=== PATIENT | female | born 1945 | race Caucasian/White ===

== ENCOUNTER 2017-05-25 07:43 | Inpatient (IN) | payer OTHER, MEDICARE ==
[2017-05-25 08:00] LABS: BASOPHILS # (AUTO) 0.1 X10^3/uL (0.0-0.1); BASOPHILS % (AUTO) 0.8 % (0.2-1.0); EOSINOPHILS # (AUTO) 0.1 x10^3/uL (0.0-0.2); EOSINOPHILS % (AUTO) 0.9 % (0.9-2.9); HEMATOCRIT 35.9 % (36.0-47.0); HEMOGLOBIN 11.8 g/dL (12.0-16.0); LYMPHOCYTES # (AUTO) 0.9 X10^3/uL (1.3-2.9); LYMPHOCYTES % (AUTO) 6.4 % (21.0-51.0); MEAN CORPUSCULAR HEMOGLOBIN 28.7 pg (27.0-34.0); MEAN CORPUSCULAR HGB CONC 32.8 g/dL (33.0-35.0); MEAN CORPUSCULAR VOLUME 87.4 fL (80.0-100.0); MEAN PLATELET VOLUME 9.8 fL (7.4-11.0); MONOCYTES # (AUTO) 0.6 x10^3/uL (0.3-0.8); MONOCYTES % (AUTO) 4.6 % (0.0-13.0); NEUTROPHILS # (AUTO) 11.8 x10^3/uL (2.2-4.8); NEUTROPHILS % (AUTO) 87.3 % (42.0-75.0); PLATELET COUNT 226 X10^3/uL (150.0-450.0); RED BLOOD COUNT 4.11 X10^6/uL (3.5-5.4); RED CELL DISTRIBUTION WIDTH 13.2 % (11.6-16.5); WHITE BLOOD COUNT 13.5 X10^3/uL (3.6-10.0)
--- NOTE | 2017-05-25 08:06 | RAD ---
Examination: AP chest History: Chest pain Findings: Normal heart size with essentially clear lungs and pleural spaces. Diffuse increase in dens ity over the left lower lung is attributed to overlying soft tissues. There is no evidence for pleura l fluid or pneumothorax. Impression: No acute chest disease identified. Reported By:
[2017-05-25 08:15] LABS: BLOOD UREA NITROGEN 27 mg/dL (7-18); CALCIUM 9.1 mg/dL (8.5-10.1); CARBON DIOXIDE 21.5 mmol/L (21-32); CHLORIDE 100 mmol/L (98-107); COR NA(FOR HYPERGLY) 144 mmol/L (136-145); CREATININE 1.26 mg/dL (0.55-1.02); SODIUM 135 mmol/L (136-145); TROPONIN I < 0.02 ng/mL (0-1.5); eGFR BLACK RACES 54 (>60); eGFR NON BLACK RACES 44 (>60)
[2017-05-25 08:20] LABS: ALANINE AMINOTRANSFERASE 34 Units/L (12-78); ALBUMIN 3.7 g/dL (3.4-5.0); ALKALINE PHOSPHATASE 137 Units/L (46-116); ASPARTATE AMINO TRANSFERASE 26 Units/L (15-37); CKMB % 1.7 % (<4); CREATINE KINASE 59 Units/L (26-192); CREATINE KINASE MB < 1.0 ng/mL (0-4.0); TOTAL PROTEIN 7.3 g/dL (6.4-8.2)
--- NOTE | 2017-05-25 08:32 | DR.GENAD ---
HPI - PCP Primary Care Physician: DANGELO BARBER - HPI Comment HPI Comment: CHEST PAIN SUB STERNAL PRESSURE RADIATING TO BOTH ARMS. HISTORY CAD S/P STENTS. GLUCOSE ELEVATED THIS AM. HAVE INSULIN PUMP. ALSO HEADACHE , SEVERE WITH N/V SINCE LAST NIGHT. PATIENT IS WEAK. NO COUGHING OR FEVER. NO DYSURIA. - Complaint/Symptoms Chief Complaint Doctors Comments: CHEST PAIN SINCE LAST NIGHT, HEADACHE WITH N/ V AND ELEVATED GLUCOSE. Chief Complaint:: PT. C/O CHEST PAIN THAT RADIATES DOWN BOTH ARMS WHICH BEGAN LAST NIGHT. PAIN HAS BEEN CONTINUOUS. PT. ALSO C/O N/V AND HIGH BLOOD SUGAR. BLOOD SUGAR READ HIGH AT HOME. PT. HAS VOMITED 5 TIMES SINCE ONSET LAST NIGHT. - Nurses notes reviewed Nurses Notes Review: Yes - Source History Provided: Patient, Family Member - Mode of Arrival Mode of Arrival: Wheelchair - Timing Onset of Chief Complaint: 05/24/17 Came on: Suddenly - Duration Duration: Constant Duration: Hours - Severity Severity: Moderate PMH - PMH Past Medical History: Yes Past Medical History: Arthritis, Coronary Artery Disease, Diabetes, Dyslipidemia , Hypertension Past Surgical History: Yes Surgical History: Angioplasty/Stents, Appendectomy, Ortho Surgery Past Surgical History Comment: ear and eye surgery - Family History History of Family Medical Conditions: No - Social History Does patient currently use any type of tobacco product: No Have you used tobacco products in the last 12 months: No Type of Tobacco Use: None Does any household member use tobacco: No Alcohol Use: None Do you use any recreational Drugs:: No Lives With: Family Lives Where: Home - infectious screening In the last 2 months have you had wt loss of >10#?: NO Have you had fever, night sweats or hemotysis?: No Have you traveled outside the country in the last 6 months?: No Isolation: Standard ROS - Review of Systems Constitutional: Weakness, Fatigue. negative: Chills, Fever Eyes: No Symptoms Reported. negative: Eye Pain, Discharge ENTM: negative: Ear Pain, Nose Discharge, Nose Congestion, Throat Pain Respiratoy: Non-Productive Cough, Short of Breath (ON EXERTION). negative: Wheezing, Hemoptysis Cardiovascular: Chest Pain, Edema (TRACE3) Gastrointestinal/Abdominal: Nausea, Vomiting Genitourinary: No Symptoms Reported. negative: Dysuria, Frequency, Hematuria Neurological: Headache, Weakness, Dizziness Musculoskeletal: No Symptoms Reported Integumentary: No Symptoms Reported Hematologic/Lymphatic: No Symptoms Reported Endocrine: negative: Flushing, Increased Thirst, Increased Urine All Other Systems: Reviewed and Negative PE - Vital Signs Vitals: Temperature 98.6 F Pulse Rate [Apical] 69 Pulse Rate 70 Respiratory Rate 17 Blood Pressure [Left Arm] 119/58 Blood Pressure 159/72 O2 Sat by Pulse Oximetry 95 - General Limitations: No Limitations General Appearance: Alert - Head Head Exam: Normal Inspection - Eyes Eye exam: Normal Appearance - ENT ENT Exam: Normal External Ear Exam External Ear Exam: Normal External Inspection TM/Canal Exam: Bilateral Normal Nose Exam: Normal Nose Exam Mouth Exam: Normal Inspection Throat Exam: Normal Inspection - Neck Neck Exam: Trachea Midline - Chest Chest Inspection: Symmetric Chest Wall Rise - Respiratory Respiratory Exam: Normal Lung Sounds Bilat Respiratory Exam: Bilateral Clear to Auscultation - Cardiovascular Cardiovascular Exam: Regular Rate, Normal Rhythm, Normal Heart Sounds - Abdominal Exam Abdominal Exam: Normal Bowel Sounds, Soft. negative: Tenderness - Extremities Extremities Exam: Normal Inspection - Back Back Exam: Normal Inspection - Neurologic Neurological Exam: Alert, Oriented X3 - Psychiatric Psychiatric Exam: Normal Affect, Normal Mood - Skin Skin Exam: Normal Color MDM - Additional Information Additional Information Obtained From: Family - Differential Diagnosis Differential Diagnosis: CHEST PAIN, HEADACHE, HYPERGLYCEMIA, WEAKNESS Course - Treatment Treatment: SEE ORDERS. INSULIN PER GLUCOSE PARAMETERS GIVEN BY JOSE. - Consultation Consultation Comments: DISCUSS PATIENT WITH DR. ZHU. HE WILL ADMIT PATIENT. - Education/Counseling Education/Counseling: Patient, Education Educated On: Treatment ROR - Labs Reviewed Laboratory Results Reviewed?: Yes Result Diagrams: 05/26/17 05:04 05/26/17 05:04 Laboratory: WBC 13.5 X10^3/uL (3.6-10.0) H 05/25/17 07:51 RBC 4.11 X10^6/uL (3.5-5.4) 05/25/17 07:51 Hgb 11.8 g/dL (12.0-16.0) L 05/25/17 07:51 Hct 35.9 % (36.0-47.0) L 05/25/17 07:51 MCV 87.4 fL (80.0-100.0) 05/25/17 07:51 MCH 28.7 pg (27.0-34.0) 05/25/17 07:51 MCHC 32.8 g/dL (33.0-35.0) L 05/25/17 07:51 RDW 13.2 % (11.6-16.5) 05/25/17 07:51 Plt Count 226 X10^3/uL (150.0-450.0) 05/25/17 07:51 MPV 9.8 fL (7.4-11.0) 05/25/17 07:51 Neut % 87.3 % (42.0-75.0) H 05/25/17 07:51 Lymph % 6.4 % (21.0-51.0) L 05/25/17 07:51 [place] % 4.6 % (0.0-13.0) 05/25/17 07:51 Eos % 0.9 % (0.9-2.9) 05/25/17 07:51 Baso % 0.8 % (0.2-1.0) 05/25/17 07:51 Neut # 11.8 x10^3/uL (2.2-4.8) H 05/25/17 07:51 Lymph # 0.9 X10^3/uL (1.3-2.9) L 05/25/17 07:51 [place] # 0.6 x10^3/uL (0.3-0.8) 05/25/17 07:51 Eos # 0.1 x10^3/uL (0.0-0.2) 05/25/17 07:51 Baso # 0.1 X10^3/uL (0.0-0.1) 05/25/17 07:51 Absolute Nucleated RBC 0.0 /100WBC 05/25/17 07:51 INR Target Range - 05/25/17 07:51 INR 1.03 (0.8-1.3) 05/25/17 07:51 PTT 28.4 SECONDS (22.9-36.5) 05/25/17 07:51 PTT Comment - 05/25/17 07:51 Sodium 135 mmol/L (136-145) L 05/25/17 07:51 Corrected Sodium 144 mmol/L (136-145) 05/25/17 07:51 Potassium 4.5 mmol/L (3.5-5.1) 05/25/17 07:51 Chloride 100 mmol/L (98-107) 05/25/17 07:51 Carbon Dioxide 21.5 mmol/L (21-32) 05/25/17 07:51 BUN 27 mg/dL (7-18) H 05/25/17 07:51 Creatinine 1.26 mg/dL (0.55-1.02) H 05/25/17 07:51 Est GFR (MDRD) Af Amer 54 (>60) L 05/25/17 07:51 Est GFR (MDRD) Non-Af 44 (>60) L 05/25/17 07:51 Glucose 494 mg/dL (65-99) H 05/25/17 07:51 Calcium 9.1 mg/dL (8.5-10.1) 05/25/17 07:51 Corrected Calcium TNP 05/25/17 07:51 Total Bilirubin 0.80 mg/dL (0.2-1.0) 05/25/17 07:51 AST 26 Units/L (15-37) 05/25/17 07:51 ALT 34 Units/L (12-78) 05/25/17 07:51 Alkaline Phosphatase 137 Units/L (46-116) H 05/25/17 07:51 Creatine Kinase 59 Units/L (26-192) 05/25/17 07:51 CK-MB (CK-2) < 1.0 ng/mL (0-4.0) 05/25/17 07:51 CK/CKMB % Calc 1.7 % (<4) 05/25/17 07:51 Troponin I < 0.02 ng/mL (0-1.5) 05/25/17 07:51 Total Protein 7.3 g/dL (6.4-8.2) 05/25/17 07:51 Albumin 3.7 g/dL (3.4-5.0) 05/25/17 07:51 Globulin 3.6 g/dL (2.5-4.5) 05/25/17 07:51 Albumin/Globulin Ratio 1.0 Ratio (1.1-2.1) L 05/25/17 07:51 Acetone, Semi-Quant Negative (NEGATIVE) 05/25/17 07:51 - XRAY XRAY Interpreted by: Radiologist XRAY Findings: REPORT DISCUSS WITH PATIENT. - EKG Rhythm: NSR (EKG NOTED) - Diagnosis Discharge Problem: Hyperglycemia Chest pain Qualifiers: Chest pain type: precordial pain Qualified Code(s): R07.2 - Precordial pain Headache Qualifiers: Headache type: unspecified Headache chronicity pattern: acute headache Intractability: intractable Qualified Code(s): R51 - Headache - Discharge Plan Disposition: 09 ADMITTED INPATIENT Condition: Stable - Follow ups/Referrals - Instructions
--- NOTE | 2017-05-25 09:10 | CT ---
HISTORY: Headaches Study: None Comparison: None Technique: Serial axial images were obtained from the skullbase to the vertex without infusion of IV contrast. Coronal and sagittal reformatted images were also submitted. Findings: The ventricles, sulci, and cisterns demonstrate an appearance consistent with a mild degree of genera lized and cortical atrophy. Patchy areas of decreased attenuation within the periventricular, subcort ical, and subinsular white matter suggest changes of chronic small vessel ischemic disease. No eviden ce of acute intracranial hemorrhage or significant midline shift is appreciated. Bilateral basal gang rd calcifications are noted. If symptoms or clinical concern persist recommend continued follow-up f or further evaluation. IMPRESSION: No evidence of acute intracranial abnormality is appreciated. Mild generalized and cortical atrophy with findings consistent with changes of chronic small vessel i schemic disease. Reported By:
[2017-05-25] MEDS: ASPIRIN 81 MG CHEWTAB PO SCH (09:57)
[2017-05-25] MEDS: NS 1000 ML 1,000 ML IV SCH ×2 (11:36→19:03)
[2017-05-25 11:59] VITALS: BMI 28.3
[2017-05-25] MEDS: HumuLIN R SUBCUT PRN ×3 (12:32→20:44)
[2017-05-25 14:35] LABS: CREATINE KINASE 51 Units/L (26-192); CREATINE KINASE MB < 1.0 ng/mL (0-4.0); TROPONIN I 0.02 ng/mL (0-1.5)
[2017-05-25] MEDS: SNACK - Diabetic Appropriate PO SCH (20:43)
[2017-05-25 20:51] LABS: CKMB % 1.9 % (<4); CREATINE KINASE 54 Units/L (26-192); CREATINE KINASE MB < 1.0 ng/mL (0-4.0); TROPONIN I 0.04 ng/mL (0-1.5)
[2017-05-26] MEDS ORDERED: D50W ABBOJECT SYR IV PRN (00:01)
[2017-05-26] MEDS ORDERED: HumuLIN R SUBCUT PRN ×2 (00:40→00:42)
[2017-05-26] MEDS: ZOFRAN INJ 4 MG VIAL IVP PRN (01:00)
[2017-05-26] MEDS: HumuLIN R IV PRN ×2 (01:33→09:11)
[2017-05-26] MEDS: NS 1000 ML 1,000 ML IV SCH ×4 (05:29→20:28)
[2017-05-26 06:05] LABS: BASOPHILS # (AUTO) 0.1 X10^3/uL (0.0-0.1); BASOPHILS % (AUTO) 1.3 % (0.2-1.0); EOSINOPHILS # (AUTO) 0.3 x10^3/uL (0.0-0.2); EOSINOPHILS % (AUTO) 4.5 % (0.9-2.9); HEMATOCRIT 30.7 % (36.0-47.0); HEMOGLOBIN 10.5 g/dL (12.0-16.0); LYMPHOCYTES # (AUTO) 1.8 X10^3/uL (1.3-2.9); LYMPHOCYTES % (AUTO) 24.4 % (21.0-51.0); MEAN CORPUSCULAR HEMOGLOBIN 29.2 pg (27.0-34.0); MEAN CORPUSCULAR HGB CONC 34.1 g/dL (33.0-35.0); MEAN CORPUSCULAR VOLUME 85.6 fL (80.0-100.0); MEAN PLATELET VOLUME 9.8 fL (7.4-11.0); MONOCYTES % (AUTO) 12.9 % (0.0-13.0); NEUTROPHILS # (AUTO) 4.2 x10^3/uL (2.2-4.8); NEUTROPHILS % (AUTO) 56.9 % (42.0-75.0); PLATELET COUNT 202 X10^3/uL (150.0-450.0); RED BLOOD COUNT 3.59 X10^6/uL (3.5-5.4); RED CELL DISTRIBUTION WIDTH 12.9 % (11.6-16.5); WHITE BLOOD COUNT 7.4 X10^3/uL (3.6-10.0)
[2017-05-26 06:13] LABS: ALANINE AMINOTRANSFERASE 28 Units/L (12-78); ALKALINE PHOSPHATASE 107 Units/L (46-116); ASPARTATE AMINO TRANSFERASE 18 Units/L (15-37); BLOOD UREA NITROGEN 17 mg/dL (7-18); CALCIUM 8.4 mg/dL (8.5-10.1); CARBON DIOXIDE 25.6 mmol/L (21-32); CHOL/HDL RATIO 2.7 (0.0-5.0); CHOLESTEROL 118 mg/dL (0-200); COR CA(FOR HYPOALB) 9.2 mg/dL (8.5-10.1); CREATININE 0.98 mg/dL (0.55-1.02); HDL CHOLESTEROL 44 mg/dL (40-60); MAGNESIUM 1.6 mg/dL (1.7-2.9); TOTAL PROTEIN 6.3 g/dL (6.4-8.2); TRIGLYCERIDES 79 mg/dL (0-150); eGFR BLACK RACES > 60 (>60); eGFR NON BLACK RACES 59 (>60)
[2017-05-26] MEDS ORDERED: HumuLIN R IV PRN (06:15)
[2017-05-26 06:28] LABS: CHLORIDE 104 mmol/L (98-107); COR NA(FOR HYPERGLY) 141 mmol/L (136-145); SODIUM 140 mmol/L (136-145)
[2017-05-26] MEDS: ASPIRIN 81 MG CHEWTAB PO SCH (08:56)
[2017-05-26] MEDS ORDERED: FLOMAX PO ONE (09:05)
[2017-05-26] MEDS ORDERED: NS 250 ML IV 0 ML IV ONE (09:08)
[2017-05-26] MEDS ORDERED: LR 1000 ML IV 1,000 ML IV ONE (10:30)
[2017-05-26] MEDS ORDERED: PATIENT'S HOME MEDICATION (Misc Home Med 1 EA) AFFEYE SCH (10:30)
[2017-05-26] MEDS ORDERED: LR 1000 ML IV 500 ML IV ONE (10:34)
[2017-05-26] MEDS: COREG TAB 3.125 MG PO SCH ×2 (11:12→20:31)
[2017-05-26] MEDS: PriLOSEC PO SCH ×2 (11:12→20:32)
[2017-05-26] MEDS: PLAVIX PO SCH (11:13)
[2017-05-26] MEDS: ZESTRIL TAB 10 MG PO SCH ×2 (11:13→20:33)
[2017-05-26] MEDS ORDERED: ALPHAGAN P 0.15% OPHTH SOLN ONE (16:41)
[2017-05-26] MEDS ORDERED: XALATAN ONE (16:41)
[2017-05-26] MEDS: XALATAN LEFTEYE SCH (16:54)
[2017-05-26] MEDS: ZESTRIL TAB 40 MG PO SCH (16:55)
[2017-05-26] MEDS: SNACK - Diabetic Appropriate PO SCH (20:29)
[2017-05-26] MEDS: CELEXA PO SCH (20:30)
[2017-05-26] MEDS: ASPIRIN EC 81 MG PO SCH (20:30)
[2017-05-26] MEDS: LIPITOR TAB 40 MG PO SCH (20:32)
[2017-05-26] MEDS: TRUSOPT PLUS (OPHTH) LEFTEYE SCH (20:33)
[2017-05-26] MEDS ORDERED: PATIENT'S HOME MEDICATION (Misc Home Med 1 DROP) EACHEYE SCH (21:00)
[2017-05-26] MEDS: ALPHAGAN P 0.15% OPHTH SOLN LEFTEYE SCH (21:11)
[2017-05-27] MEDS ORDERED: HumuLIN R SUBCUT ONE ×2 (00:30→06:04)
[2017-05-27] MEDS: ZOFRAN INJ 4 MG VIAL IVP PRN (02:48)
[2017-05-27] MEDS: NS 1000 ML 1,000 ML IV SCH ×3 (06:01→19:03)
[2017-05-27 06:06] LABS: BASOPHILS # (AUTO) 0.1 X10^3/uL (0.0-0.1); BASOPHILS % (AUTO) 1.1 % (0.2-1.0); EOSINOPHILS # (AUTO) 0.3 x10^3/uL (0.0-0.2); EOSINOPHILS % (AUTO) 3.1 % (0.9-2.9); HEMATOCRIT 28.8 % (36.0-47.0); LYMPHOCYTES # (AUTO) 1.5 X10^3/uL (1.3-2.9); LYMPHOCYTES % (AUTO) 16.1 % (21.0-51.0); MEAN CORPUSCULAR HEMOGLOBIN 29.7 pg (27.0-34.0); MEAN CORPUSCULAR HGB CONC 34.6 g/dL (33.0-35.0); MEAN CORPUSCULAR VOLUME 85.8 fL (80.0-100.0); MEAN PLATELET VOLUME 9.7 fL (7.4-11.0); MONOCYTES # (AUTO) 0.7 x10^3/uL (0.3-0.8); MONOCYTES % (AUTO) 7.8 % (0.0-13.0); NEUTROPHILS # (AUTO) 6.7 x10^3/uL (2.2-4.8); NEUTROPHILS % (AUTO) 71.9 % (42.0-75.0); PLATELET COUNT 194 X10^3/uL (150.0-450.0); RED BLOOD COUNT 3.36 X10^6/uL (3.5-5.4); RED CELL DISTRIBUTION WIDTH 13.1 % (11.6-16.5); WHITE BLOOD COUNT 9.3 X10^3/uL (3.6-10.0)
[2017-05-27 06:27] LABS: ALANINE AMINOTRANSFERASE 26 Units/L (12-78); ALBUMIN 2.9 g/dL (3.4-5.0); ALKALINE PHOSPHATASE 98 Units/L (46-116); ASPARTATE AMINO TRANSFERASE 16 Units/L (15-37); BLOOD UREA NITROGEN 17 mg/dL (7-18); CALCIUM 8.5 mg/dL (8.5-10.1); CARBON DIOXIDE 26.3 mmol/L (21-32); CHLORIDE 106 mmol/L (98-107); COR CA(FOR HYPOALB) 9.4 mg/dL (8.5-10.1); COR NA(FOR HYPERGLY) 143 mmol/L (136-145); CREATININE 0.97 mg/dL (0.55-1.02); SODIUM 140 mmol/L (136-145); eGFR BLACK RACES > 60 (>60); eGFR NON BLACK RACES > 60 (>60)
[2017-05-27] MEDS: PriLOSEC PO SCH ×2 (09:06→20:18)
[2017-05-27] MEDS: COREG TAB 3.125 MG PO SCH ×2 (09:06→20:18)
[2017-05-27] MEDS: ZESTRIL TAB 40 MG PO SCH (09:06)
[2017-05-27] MEDS: ASPIRIN 81 MG CHEWTAB PO SCH (09:06)
[2017-05-27] MEDS: PLAVIX PO SCH (09:06)
[2017-05-27] MEDS: ZESTRIL TAB 10 MG PO SCH ×2 (09:07→20:18)
[2017-05-27] MEDS: ALPHAGAN P 0.15% OPHTH SOLN LEFTEYE SCH ×2 (09:08→20:53)
[2017-05-27] MEDS: XALATAN LEFTEYE SCH (09:08)
[2017-05-27] MEDS: TRUSOPT PLUS (OPHTH) LEFTEYE SCH ×2 (09:09→20:26)
[2017-05-27] MEDS: NORVASC TAB 10 MG PO SCH ×2 (10:00→12:13)
[2017-05-27] MEDS: TOUJEO SOLOSTAR PEN SC SCH (14:43)
[2017-05-27] MEDS: HumuLIN R IV PRN (19:01)
[2017-05-27] MEDS ORDERED: SNACK - Diabetic Appropriate PO SCH ×3 (20:00)
[2017-05-27] MEDS: SNACK - Diabetic Appropriate PO SCH (20:00)
[2017-05-27] MEDS: CELEXA PO SCH (20:17)
[2017-05-27] MEDS: ASPIRIN EC 81 MG PO SCH (20:18)
[2017-05-27] MEDS: LIPITOR TAB 40 MG PO SCH (20:18)
[2017-05-28] MEDS: NS 1000 ML 1,000 ML IV SCH (03:09)
[2017-05-28] MEDS: HumuLIN R IV PRN (04:11)
[2017-05-28] MEDS: PLAVIX PO SCH (08:25)
[2017-05-28] MEDS: NORVASC TAB 10 MG PO SCH (08:25)
[2017-05-28] MEDS: PriLOSEC PO SCH (08:25)
[2017-05-28] MEDS: COREG TAB 3.125 MG PO SCH (08:26)
[2017-05-28] MEDS: TOUJEO SOLOSTAR PEN SC SCH (08:26)
[2017-05-28] MEDS: ASPIRIN 81 MG CHEWTAB PO SCH (08:27)
[2017-05-28] MEDS: ALPHAGAN P 0.15% OPHTH SOLN LEFTEYE SCH (08:28)
[2017-05-28] MEDS: TRUSOPT PLUS (OPHTH) LEFTEYE SCH (08:29)
[2017-05-28] MEDS: ZESTRIL TAB 40 MG PO SCH (08:29)
[2017-05-28] MEDS: XALATAN LEFTEYE SCH (08:29)
[2017-05-28] MEDS: ZESTRIL TAB 10 MG PO SCH (08:30)
[2017-05-28 11:23] VITALS: BP 146/65
== END 2017-05-28 11:30 | disposition home or self-care (01) | DRG 313 ==
LOC: ER 07:46 → MED/SURG 09:32 → OBSVTOIN 05-26 00:01 → ICU 05-26 00:01
PROVIDERS: ADMIT Obstetrics & Gynecology Obstetrics; ATTEND Obstetrics & Gynecology Obstetrics
DX: R07.2 Precordial pain (principal); E11.65 Type 2 diabetes mellitus with hyperglycemia; R51 Headache; I25.10 Atherosclerotic heart disease of native coronary artery without angina pectoris; R11.2 Nausea with vomiting, unspecified; E78.2 Mixed hyperlipidemia; I10 Essential (primary) hypertension; M13.89 Other specified arthritis, multiple sites; Z79.899 Other long term (current) drug therapy
CPT/HCPCS: 36415; 70450; 71045; 80053; 80061; 82009; 82550; 82553; 83735; 84484; 85025; 85610; 85730; 93005; 93010; 94760; 96365; 99284; A4222; G0378; J1815; J2405; J7120

== ENCOUNTER 2024-11-07 22:56 | Observation (INO) ==
--- NOTE | 2024-11-07 23:22 | DR.HTN ---
HPI Time Seen Time Seen by Provider: 11/07/24 23:16 HPI Comment HPI Comment: History as below. Complaints Chief Complaint Doctors Comments: Patient is a 79-year-old female in the emergency room with elevated blood pressure. Lisinopril did not bring down the blood pressure. Patient said that she is also having headache and shortness of breath. Patient, have history of diabetes hypertension dyslipidemia and previous CVA. Patient denies trauma, cough, congestion and fever. She also denies dysuria, vomiting or diarrhea. COVID-19 Coronavirus risk:travel/contact w/high risk person: No Has patient experienced Coronavirus symptoms: No Reviewed Nurses Notes Reviewed: Yes PMH PMH Past Medical History: CVA, Diabetes, Dyslipidemia and Hypertension Past Surgical History: Yes Surgical History: Appendectomy, CABG/Valve Surgery and Hysterectomy Family History Family Medical History: Diabetes Mellitus and Hypertension Social History Do you use any recreational Drugs:: No ROS Review of Systems Constitutional: No Symptoms Reported and See HPI; negative Fever Eyes: No Symptoms Reported and See HPI ENTM: No Symptoms Reported and See HPI; negative Nose Discharge or Nose Congestion Respiratoy: Short of Breath; negative Moist Cough or Wheezing Cardiovascular: No Symptoms Reported and See HPI; negative Chest Pain Gastrointestinal/Abdominal: negative Abdominal Pain, Diarrhea, Nausea or Vomiting Genitourinary: No Symptoms Reported and See HPI; negative Dysuria Neurological: See HPI and Headache Musculoskeletal: No Symptoms Reported and See HPI Integumentary: No Symptoms Reported and See HPI Hematologic/Lymphatic: No Symptoms Reported and See HPI Endocrine: No Symptoms Reported and See HPI Psychiatric: No Symptoms Reported and See HPI All Other Systems: Reviewed and Negative PE Vital Signs Vitals: Vital Signs Temperature 97.6 F Pulse Rate 60 Pulse Rate 60 Pulse Rate 60 Pulse Rate 60 Pulse Rate 60 Pulse Rate 60 Pulse Rate 60 Pulse Rate 60 Pulse Rate 60 Pulse Rate 60 Pulse Rate 60 Pulse Rate 61 Pulse Rate 61 Pulse Rate 63 Pulse Rate 65 Pulse Rate 66 Pulse Rate 67 Pulse Rate 65 Pulse Rate 69 Pulse Rate 72 Pulse Rate 75 Pulse Rate 78 Pulse Rate 66 Pulse Rate 67 Pulse Rate 66 Pulse Rate 66 Pulse Rate 66 Pulse Rate 68 Pulse Rate 63 Pulse Rate 63 Pulse Rate 60 Pulse Rate 60 Pulse Rate 62 Pulse Rate 62 Pulse Rate 65 Pulse Rate 64 Respiratory Rate 15 Respiratory Rate 17 Respiratory Rate 18 Respiratory Rate 23 Respiratory Rate 18 Respiratory Rate 16 Respiratory Rate 22 Respiratory Rate 18 Respiratory Rate 17 Respiratory Rate 19 Respiratory Rate 18 Respiratory Rate 20 Respiratory Rate 18 Respiratory Rate 18 Respiratory Rate 20 Respiratory Rate 24 Respiratory Rate 29 Respiratory Rate 22 Respiratory Rate 19 Respiratory Rate 19 Respiratory Rate 23 Respiratory Rate 18 Respiratory Rate 24 Respiratory Rate 23 Respiratory Rate 21 Respiratory Rate 22 Respiratory Rate 17 Respiratory Rate 19 Respiratory Rate 24 Respiratory Rate 24 Respiratory Rate 24 Respiratory Rate 26 Respiratory Rate 26 Respiratory Rate 25 Respiratory Rate 24 Respiratory Rate 24 Respiratory Rate 26 Blood Pressure 132/60 Blood Pressure 132/60 Blood Pressure 123/58 Blood Pressure 102/49 Blood Pressure 139/61 Blood Pressure 135/61 Blood Pressure 135/61 Blood Pressure 157/67 Blood Pressure 159/67 Blood Pressure 181/74 Blood Pressure 196/79 Blood Pressure 187/74 Blood Pressure 172/74 Blood Pressure 172/74 Blood Pressure 172/74 Blood Pressure 177/74 Blood Pressure 177/74 Blood Pressure 177/74 Blood Pressure 182/67 Blood Pressure 198/74 Blood Pressure 190/73 Blood Pressure 204/84 Blood Pressure 182/79 Blood Pressure 197/77 Blood Pressure 203/77 Blood Pressure 227/88 Blood Pressure 228/92 O2 Sat by Pulse Oximetry 99 O2 Sat by Pulse Oximetry 99 O2 Sat by Pulse Oximetry 98 O2 Sat by Pulse Oximetry 98 O2 Sat by Pulse Oximetry 99 O2 Sat by Pulse Oximetry 100 O2 Sat by Pulse Oximetry 100 O2 Sat by Pulse Oximetry 99 O2 Sat by Pulse Oximetry 99 O2 Sat by Pulse Oximetry 99 O2 Sat by Pulse Oximetry 99 O2 Sat by Pulse Oximetry 99 O2 Sat by Pulse Oximetry 99 O2 Sat by Pulse Oximetry 100 O2 Sat by Pulse Oximetry 100 O2 Sat by Pulse Oximetry 100 O2 Sat by Pulse Oximetry 100 O2 Sat by Pulse Oximetry 100 O2 Sat by Pulse Oximetry 99 O2 Sat by Pulse Oximetry 99 O2 Sat by Pulse Oximetry 99 O2 Sat by Pulse Oximetry 98 O2 Sat by Pulse Oximetry 99 O2 Sat by Pulse Oximetry 98 O2 Sat by Pulse Oximetry 98 O2 Sat by Pulse Oximetry 99 O2 Sat by Pulse Oximetry 97 O2 Sat by Pulse Oximetry 97 O2 Sat by Pulse Oximetry 97 O2 Sat by Pulse Oximetry 96 O2 Sat by Pulse Oximetry 94 O2 Sat by Pulse Oximetry 96 O2 Sat by Pulse Oximetry 95 O2 Sat by Pulse Oximetry 95 O2 Sat by Pulse Oximetry 95 General Limitations: No Limitations Head Head Exam: Normal Inspection Eyes Eye exam: Normal Appearance, PERRL and EOMI; negative Scleral Icterus or Conjunctival Injection Pupils: Regular, Round: Bilateral and Reactive: Bilateral Sclera/Conjunctival: Normal Inspection: Bilateral ENT ENT Exam: Normal Exam, Normal Oropharynx, Normal External Ear Exam and TM's Normal Bilaterally Neck Neck Exam: Normal Inspection and Trachea Midline; negative Tenderness Chest Chest Inspection: Normal Inspection, Symmetric Chest Wall Rise and Tenderness Respiratory Respiratory Exam: Normal Lung Sounds Bilat and Accessory Muscle Use; negative Chest Wall Tenderness Cardiovascular Cardiovascular Exam: Regular Rate, Normal Rhythm and Normal Heart Sounds; negative Systolic Murmur or Diastolic Murmur Abdominal Exam Abdominal Exam: Normal Inspection, Normal Bowel Sounds and Soft; negative Tenderness Extremities Extremities Exam: Normal Inspection and Normal Capillary Refill Back Back Exam: Normal Inspection; negative (R) CVA Tenderness or (L) CVA Tenderness Neurologic Neurological Exam: Alert and Oriented X3; negative Motor Sensory Deficit Patient Oriented To: Person, Place and Time Speech: Fluid Speech Motor Strength - LUE: 5/5 Motor Strength - RUE: 5/5 Motor Strength - LLE: 5/5 Motor Strength - RLE: 5/5 Psychiatric Psychiatric Exam: Normal Affect and Normal Mood Skin Skin Exam: Warm and Intact MDM Differential Diagnosis Differential Diagnosis: CHF (UTI) and Hypertensive emergency COURSE Treatment Treatment: See orders done while patient was in the emergency room. Labs and EKG and CT of the brain discussed with patient and family. Patient given pain and blood pressure medication while in ER. Patient's headache and blood pressure are improving. She will be admitted to hospital for further management. Education/Counseling Education/Counseling: Patient and Family Educated On: Diagnosis ROR Labs Reviewed Laboratory Results Reviewed?: Yes 11/08/24 05:25 11/08/24 05:25 Laboratory: WBC 8.3 X10^3/uL (3.6-10.0) 11/07/24 23:17 RBC 4.08 X10^6/uL (3.5-5.4) 11/07/24 23:17 Hgb 11.7 g/dL (12.0-16.0) L 11/07/24 23:17 Hct 35.5 % (36.0-47.0) L 11/07/24 23:17 MCV 87.0 fL (80.0-100.0) 11/07/24 23:17 MCH 28.7 pg (27.0-34.0) 11/07/24 23:17 MCHC 33.0 g/dL (33.0-35.0) 11/07/24 23:17 RDW 14.6 % (11.6-16.5) 11/07/24 23:17 Plt Count 187 X10^3/uL (150.0-450.0) 11/07/24 23:17 MPV 9.6 fL (7.4-11.0) 11/07/24 23:17 Neut % (Auto) 67.6 % (42.0-75.0) 11/07/24 23:17 Lymph % (Auto) 15.4 % (21.0-51.0) L 11/07/24 23:17 Mcleod % (Auto) 10.4 % (0.0-13.0) 11/07/24 23:17 Eos % (Auto) 3.9 % (0.9-2.9) H 11/07/24 23:17 Baso % (Auto) 2.7 % (0.2-1.0) H 11/07/24 23:17 Neut # (Auto) 5.6 x10^3/uL (2.2-4.8) H 11/07/24 23:17 Lymph # (Auto) 1.3 X10^3/uL (1.3-2.9) 11/07/24 23:17 Mcleod # (Auto) 0.9 x10^3/uL (0.3-0.8) H 11/07/24 23:17 Eos # (Auto) 0.3 x10^3/uL (0.0-0.2) H 11/07/24 23:17 Baso # (Auto) 0.2 X10^3/uL (0.0-0.1) H 11/07/24 23:17 Absolute Nucleated RBC 0.1 /100WBC 11/07/24 23:17 Sodium 142 mmol/L (136-145) 11/07/24 23:17 Corrected Sodium 143 mmol/L (136-145) 11/07/24 23:17 Potassium 4.0 mmol/L (3.5-5.1) 11/07/24 23:17 Chloride 106 mmol/L (98-107) 11/07/24 23:17 Carbon Dioxide 25.5 mmol/L (21-32) 11/07/24 23:17 BUN 21 mg/dL (7-18) H 11/07/24 23:17 Creatinine 1.23 mg/dL (0.55-1.02) H 11/07/24 23:17 Est GFR (MDRD) Af Amer 54 (>60) L 11/07/24 23:17 Est GFR (MDRD) Non-Af 45 (>60) L 11/07/24 23:17 Glucose 133 mg/dL (65-99) H 11/07/24 23:17 Calcium 8.8 mg/dL (8.5-10.1) 11/07/24 23:17 Corrected Calcium TNP 11/07/24 23:17 Total Bilirubin 0.40 mg/dL (0.2-1.0) 11/07/24 23:17 AST 52 Units/L (15-37) H 11/07/24 23:17 ALT 47 Units/L (12-78) 11/07/24 23:17 Alkaline Phosphatase 151 Units/L (46-116) H 11/07/24 23:17 Creatine Kinase 75 Units/L (26-192) 11/08/24 02:00 Troponin I High Sens 12.1 ng/L (4.0-60.0) 11/08/24 02:00 B-Natriuretic Peptide 282 pg/mL (0-79) H 11/07/24 23:17 Total Protein 9.0 g/dL (6.4-8.2) H 11/07/24 23:17 Albumin 4.2 g/dL (3.4-5.0) 11/07/24 23:17 Globulin 4.8 g/dL (2.5-4.5) H 11/07/24 23:17 Albumin/Globulin Ratio 0.9 Ratio (1.1-2.1) L 11/07/24 23:17 XRAY XRAY Interpreted by: Radiologist (Report noted.) and Self EKG Rate: 61 [place]: Normal Opioid Opioid Risk Tool Age (Miguel A box if 16-45): No History of Preadolescent Sexual Abuse: No Total: 0 Total Score Risk Category: Low Risk Copyright: Casey predicting aberrant behaviors Discharge Plan Diagnosis Discharge Problem: Hypertension, Headache, Abnormal EKG Discharge Plan Patient Disposition: 09 ADMITTED INPATIENT Condition: Stable Discharge Comment: RETURN TO ER IF WORSE. Orders to Discharge Patient Discharge Orders: Discharge (Routine); Ordered 11/08/24 Ordered By: Cole Johnson
[2024-11-07] MEDS: APRESOLINE INJ 20 MG VIAL IVP ONE (23:25)
--- NOTE | 2024-11-07 23:30 | EKG ---
Test Reason : hypertension, sob Blood Pressure : */* mmHG Vent. Rate : 61 BPM Atrial Rate : 61 BPM P-R Int : 162 ms QRS Dur : 86 ms QT Int : 448 ms P-R-T Axes : 90 50 257 degrees QTc Int : 450 ms Normal sinus rhythm Low voltage QRS Abnormal ECG When compared with ECG of 09-NOV-2023 13:51, T wave inversion no longer evident in Inferior leads T wave inversion no longer evident in Anterior leads Confirmed by Arya Alexis MD ([id number]) on 11/08/2024 7:24:16 AM Referred By: Confirmed By: Aray Alexis MD
[2024-11-07 23:47] LABS: ALANINE AMINOTRANSFERASE 47 Units/L (12-78); ALBUMIN 4.2 g/dL (3.4-5.0); ALKALINE PHOSPHATASE 151 Units/L (46-116); ASPARTATE AMINO TRANSFERASE 52 Units/L (15-37); BLOOD UREA NITROGEN 21 mg/dL (7-18); CALCIUM 8.8 mg/dL (8.5-10.1); CARBON DIOXIDE 25.5 mmol/L (21-32); CHLORIDE 106 mmol/L (98-107); COR NA(FOR HYPERGLY) 143 mmol/L (136-145); CREATINE KINASE 90 Units/L (26-192); CREATININE 1.23 mg/dL (0.55-1.02); GLUCOSE 133 mg/dL (65-99); SODIUM 142 mmol/L (136-145); eGFR NON BLACK RACES 45 (>60)
[2024-11-07] MEDS: TORADOL 30 MG VIAL IVP ONE (23:55)
[2024-11-08] MEDS: CATAPRES TAB 0.2 MG PO ONE (00:09)
[2024-11-08 01:02] LABS: BASOPHILS # (AUTO) 0.2 X10^3/uL (0.0-0.1); BASOPHILS % (AUTO) 2.7 % (0.2-1.0); EOSINOPHILS # (AUTO) 0.3 x10^3/uL (0.0-0.2); EOSINOPHILS % (AUTO) 3.9 % (0.9-2.9); HEMATOCRIT 35.5 % (36.0-47.0); HEMOGLOBIN 11.7 g/dL (12.0-16.0); LYMPHOCYTES # (AUTO) 1.3 X10^3/uL (1.3-2.9); LYMPHOCYTES % (AUTO) 15.4 % (21.0-51.0); MEAN CORPUSCULAR HEMOGLOBIN 28.7 pg (27.0-34.0); MEAN PLATELET VOLUME 9.6 fL (7.4-11.0); MONOCYTES # (AUTO) 0.9 x10^3/uL (0.3-0.8); MONOCYTES % (AUTO) 10.4 % (0.0-13.0); NEUTROPHILS # (AUTO) 5.6 x10^3/uL (2.2-4.8); NEUTROPHILS % (AUTO) 67.6 % (42.0-75.0); PLATELET COUNT 187 X10^3/uL (150.0-450.0); RED BLOOD COUNT 4.08 X10^6/uL (3.5-5.4); RED CELL DISTRIBUTION WIDTH 14.6 % (11.6-16.5); WHITE BLOOD COUNT 8.3 X10^3/uL (3.6-10.0)
--- NOTE | 2024-11-08 01:28 | CT ---
EXAM: CT HEAD WITHOUT CONTRAST HISTORY: HEADACHE; COMPARISON: None . TECHNIQUE: Axial CT images were obtained through the brain without contrast. All CT scans at this facility use dose modulation, iterative reconstruction, and/or weight based dosing when appropriate to reduce radiation dose to as low as reasonably achievable. FINDINGS: BRAIN: There is mild diffuse atrophy with proportionate enlargement of the cerebral sulci and ventricular system. Decreased attenuation in the periventricular white matter is compatible with but not specific for chronic small vessel ischemic changes. No evidence of acute infarct intra or extraaxial hemorrhage mass effect or hydrocephalus. CALVARIUM: Normal ADDITIONAL FINDINGS: The visualized paranasal sinuses and mastoid air cells are clear. Orbits are grossly unremarkable. IMPRESSION: No evidence of acute intracranial process. Diffuse atrophy with patchy periventricular white matter changes THIS IS AN ELECTRONICALLY VERIFIED FINAL REPORT 11/08/2024 1:25 AM - Electronically signed by Estrada Bedolla MD
[2024-11-08] MEDS: FIORICET TAB PO ONE (01:34)
--- NOTE | 2024-11-08 02:05 | EKG ---
Test Reason : HTN Blood Pressure : */* mmHG Vent. Rate : 60 BPM Atrial Rate : 60 BPM P-R Int : 206 ms QRS Dur : 88 ms QT Int : 426 ms P-R-T Axes : 87 52 233 degrees QTc Int : 426 ms Atrial-paced rhythm Abnormal ECG When compared with ECG of 07-NOV-2024 23:30, (Unconfirmed) Electronic atrial pacemaker has replaced Sinus rhythm T wave inversion now evident in Inferior leads Confirmed by Arya Alexis MD ([id number]) on 11/08/2024 7:24:09 AM Referred By: Confirmed By: Arya Alexis MD
[2024-11-08] MEDS ORDERED: TORADOL 30 MG VIAL IVP PRN (03:10)
[2024-11-08] MEDS: APRESOLINE INJ 20 MG VIAL IVP ONE (03:11)
[2024-11-08 03:46] VITALS: O2SAT 98
[2024-11-08 03:59] VITALS: BMI 25.4
[2024-11-08] MEDS ORDERED: TORADOL 15 MG VIAL IVP PRN (04:12)
[2024-11-08 06:10] LABS: BASOPHILS # (AUTO) 0.1 X10^3/uL (0.0-0.1); BASOPHILS % (AUTO) 1.7 % (0.2-1.0); EOSINOPHILS # (AUTO) 0.2 x10^3/uL (0.0-0.2); EOSINOPHILS % (AUTO) 2.5 % (0.9-2.9); HEMATOCRIT 30.2 % (36.0-47.0); HEMOGLOBIN 10.3 g/dL (12.0-16.0); LYMPHOCYTES # (AUTO) 1.3 X10^3/uL (1.3-2.9); LYMPHOCYTES % (AUTO) 18.8 % (21.0-51.0); MEAN CORPUSCULAR HEMOGLOBIN 29.3 pg (27.0-34.0); MEAN CORPUSCULAR HGB CONC 34.1 g/dL (33.0-35.0); MEAN CORPUSCULAR VOLUME 85.9 fL (80.0-100.0); MEAN PLATELET VOLUME 9.1 fL (7.4-11.0); MONOCYTES # (AUTO) 0.8 x10^3/uL (0.3-0.8); MONOCYTES % (AUTO) 12.6 % (0.0-13.0); NEUTROPHILS # (AUTO) 4.4 x10^3/uL (2.2-4.8); NEUTROPHILS % (AUTO) 64.4 % (42.0-75.0); PLATELET COUNT 147 X10^3/uL (150.0-450.0); RED BLOOD COUNT 3.52 X10^6/uL (3.5-5.4); RED CELL DISTRIBUTION WIDTH 14.4 % (11.6-16.5); WHITE BLOOD COUNT 6.7 X10^3/uL (3.6-10.0)
[2024-11-08 06:16] LABS: ALANINE AMINOTRANSFERASE 38 Units/L (12-78); ALBUMIN 3.4 g/dL (3.4-5.0); ALKALINE PHOSPHATASE 123 Units/L (46-116); ASPARTATE AMINO TRANSFERASE 37 Units/L (15-37); BLOOD UREA NITROGEN 21 mg/dL (7-18); CALCIUM 8.5 mg/dL (8.5-10.1); CARBON DIOXIDE 27.6 mmol/L (21-32); CHLORIDE 108 mmol/L (98-107); CREATININE 1.05 mg/dL (0.55-1.02); GLUCOSE 77 mg/dL (65-99); MAGNESIUM 2.1 mg/dL (2.0-2.9); POTASSIUM 3.7 mmol/L (3.5-5.1); SODIUM 143 mmol/L (136-145); TOTAL PROTEIN 7.2 g/dL (6.4-8.2); eGFR NON BLACK RACES 54 (>60)
--- NOTE | 2024-11-08 06:22 | EKG ---
Test Reason : Previous abnormal EKG Blood Pressure : */* mmHG Vent. Rate : 60 BPM Atrial Rate : 60 BPM P-R Int : 226 ms QRS Dur : 90 ms QT Int : 482 ms P-R-T Axes : 98 33 -70 degrees QTc Int : 482 ms Atrial-paced rhythm with prolonged AV conduction Prolonged QT Abnormal ECG When compared with ECG of 08-NOV-2024 02:04, (Unconfirmed) QT has lengthened Confirmed by Arya Alexis MD ([id number]) on 11/08/2024 7:22:26 AM Referred By: Confirmed By: Arya Alexis MD
--- NOTE | 2024-11-08 07:11 | RAD ---
EXAM: CHEST, 1 VIEW HISTORY: SOB ON EXERTION; COMPARISON: No relevant prior studies were available for comparison at the time of interpretation. TECHNIQUE: CHEST, 1 VIEW FINDINGS: Chest: Lines and tubes: Left-sided pacemaker generator with lead or leads in satisfactory position. Mediastinum: Median sternotomy wires are present. Cardiac shadow is normal in size. Pulmonary vessels: There is pulmonary vascular congestion. Lung cook: Patchy opacities are seen Pleura: No effusion. No pneumothorax. Bones and soft tissues: No acute osseous or soft tissue abnormality. IMPRESSION: 1. Heart failure versus pneumonia THIS IS AN ELECTRONICALLY VERIFIED FINAL REPORT 11/08/2024 7:08 AM - Electronically signed by Niko Moore MD
[2024-11-08] MEDS: APRESOLINE INJ 20 MG VIAL ONE (07:15)
[2024-11-08] MEDS: CATAPRES TAB 0.2 MG ONE (07:15)
[2024-11-08] MEDS: TORADOL 30 MG VIAL ONE (07:15)
[2024-11-08] MEDS: PROTONIX TAB 40 MG PO SCH (08:33)
[2024-11-08] MEDS: ZESTRIL TAB 10 MG PO SCH (08:33)
[2024-11-08] MEDS: LASIX IVP SCH (08:34)
[2024-11-08] MEDS: ALPHAGAN 0.2% OPHTH SOLN LEFTEYE SCH (08:41)
[2024-11-08] MEDS: COSOPT OPTH OP SCH (08:41)
[2024-11-08] MEDS ORDERED: ALPHAGAN 0.2% OPHTH SOLN LEFTEYE SCH (09:00)
[2024-11-08] MEDS ORDERED: COSOPT OPTH OP SCH (09:00)
[2024-11-08] MEDS ORDERED: LASIX IVP SCH (09:00)
[2024-11-08 09:14] VITALS: BP 125/58; PULSE 60; RESP 19; TEMP 97
[2024-11-08] MEDS ORDERED: CELEXA PO SCH ×2 (21:00)
[2024-11-08] MEDS ORDERED: LIPITOR TAB 80 MG PO SCH ×2 (21:00)
--- NOTE | 2024-11-12 10:48 | DR.SSS ---
SHORT STAY SUMMARY Admission Date Date of Admission: 11/07/24 Discharge Date Discharge Date: 11/08/24 Admission Diagnoses Admission Diagnoses: Chest pain rule out Hypertension Discharge Diagnoses Discharge Diagnoses: Chest pain rule out Hypertension Chief Complaint Chief Complaint: chest pain headache History of Present Illness History of Present Illness: Patient is a 79-year-old female presenting with chest pain and headache. She reports symptoms started earlier in the day. She reports headache progressively gotten worse. In the ER she was noted to be severely hypertensive. Labs/imaging: WBC 6.7, hemoglobin 10.3, platelets 147, sodium 143, potassium 3.7, creatinine 1.05, glucose 77, BNP 282, troponin negative x 3, chest x-ray was obtained revealing heart failure versus pneumonia. Patient however is not short of breath or has signs of lower extremity edema. Brain CT negative. Patient was admitted for chest pain rule out and hypertensive urgency. She was given IV medications that did bring blood pressure back down. Headache and chest pain resolved on exam. She states that she does have Bumex at home that she takes as needed. Discussed with patient that she will need to take Bumex at least daily for the next 3 days until she sees her primary care provider. Will also send in some clonidine to use as needed to bring down blood pressure if she notices as being elevated at home. She will also follow-up with her senior revenue accountant outpatient. Patient was discharged in stable condition. Instructed follow-up PCP within 1 week. Past Medical History Past Medical History: CVA, Diabetes, Dyslipidemia and Hypertension Past Surgical History Surgical History: Appendectomy, CABG/Valve Surgery, Hysterectomy and T onsillectomy Allergies Allergies Allergy/AdvReac Type Severity Reaction Status Date / Time No Known Drug Allergies Allergy Verified 10/27/17 12:11 Medications Home Medications: No Known Drug Allergies Allergy (Verified 10/27/17 12:11) CONTINUE taking the following medications brimonidine 0.2 % eye drops drp ophthalmic (eye) 11/07/24 [History] dorzolamide 22.3 mg-timolol 6.8 mg/mL eye drops 1 drp ophthalmic (eye) BID 11/07/24 [History] insulin lispro 100 unit/mL subcutaneous solution (Humalog U-100 Insulin) See Rx Instructions .Route .COMPLEX PRN 11/07/24 [History] lisinopril 10 mg tablet 10 mg PO DAILY 11/07/24 [History] pantoprazole 40 mg tablet,delayed release 40 mg PO BID 11/07/24 [History] Family History Family Medical History: Diabetes Mellitus, Cancer and Hypertension Social History Does patient currently use any type of tobacco product: No Have you used tobacco products in the last 12 months: No Type of Tobacco Use: None Does any household member use tobacco: No Alcohol Use: None Drug Use: None Review of Systems Constitutional: Other (headache) Eyes: No Symptoms Reported ENT: No Symptoms Reported Respiratory: No Symptoms Reported Cardiovascular: Chest Pain Gastrointestinal: No Symptoms Reported Genitourinary: No Symptoms Reported Musculoskeletal: No Symptoms Reported Skin: No Symptoms Reported Neurological: No Symptoms Reported Physical Exam Vital Signs: Last Vital Signs Temp 97.0 F L 11/08/24 08:00 Pulse 60 11/08/24 08:00 Resp 19 11/08/24 08:00 BP 125/58 11/08/24 08:00 Pulse Ox 98 11/08/24 08:00 O2 Del Method Nasal Cannula 11/08/24 08:47 O2 Flow Rate 2 11/08/24 08:47 FiO2 28 11/08/24 08:47 Oriented: Normal Eyes: Normal Ear: Normal Nose: Normal Throat: Normal Respiratory: Clear Throughout Cardiovascular: Normal : Normal Auscultation: Bowel Sounds: Normal Palpation: Normal Tenderness: Normal Skin: Normal Musculoskeletal: Normal Psychiatric: Normal Mood Description: Calm Speech Pattern: Clear Labs Labs: Laboratory Last Values WBC 6.7 X10^3/uL (3.6-10.0) 11/08/24 05:25 RBC 3.52 X10^6/uL (3.5-5.4) 11/08/24 05:25 Hgb 10.3 g/dL (12.0-16.0) L 11/08/24 05:25 Hct 30.2 % (36.0-47.0) L 11/08/24 05:25 MCV 85.9 fL (80.0-100.0) 11/08/24 05:25 MCH 29.3 pg (27.0-34.0) 11/08/24 05:25 MCHC 34.1 g/dL (33.0-35.0) 11/08/24 05:25 RDW 14.4 % (11.6-16.5) 11/08/24 05:25 Plt Count 147 X10^3/uL (150.0-450.0) L 11/08/24 05:25 MPV 9.1 fL (7.4-11.0) 11/08/24 05:25 Neut % (Auto) 64.4 % (42.0-75.0) 11/08/24 05:25 Lymph % (Auto) 18.8 % (21.0-51.0) L 11/08/24 05:25 Loving % (Auto) 12.6 % (0.0-13.0) 11/08/24 05:25 Eos % (Auto) 2.5 % (0.9-2.9) 11/08/24 05:25 Baso % (Auto) 1.7 % (0.2-1.0) H 11/08/24 05:25 Neut # (Auto) 4.4 x10^3/uL (2.2-4.8) 11/08/24 05:25 Lymph # (Auto) 1.3 X10^3/uL (1.3-2.9) 11/08/24 05:25 Loving # (Auto) 0.8 x10^3/uL (0.3-0.8) 11/08/24 05:25 Eos # (Auto) 0.2 x10^3/uL (0.0-0.2) 11/08/24 05:25 Baso # (Auto) 0.1 X10^3/uL (0.0-0.1) 11/08/24 05:25 Absolute Nucleated RBC 0.0 /100WBC 11/08/24 05:25 Sodium 143 mmol/L (136-145) 11/08/24 05:25 Corrected Sodium TNP 11/08/24 05:25 Potassium 3.7 mmol/L (3.5-5.1) 11/08/24 05:25 Chloride 108 mmol/L (98-107) H 11/08/24 05:25 Carbon Dioxide 27.6 mmol/L (21-32) 11/08/24 05:25 BUN 21 mg/dL (7-18) H 11/08/24 05:25 Creatinine 1.05 mg/dL (0.55-1.02) H 11/08/24 05:25 Est GFR (MDRD) Af Amer > 60 (>60) 11/08/24 05:25 Est GFR (MDRD) Non-Af 54 (>60) L 11/08/24 05:25 Glucose 77 mg/dL (65-99) 11/08/24 05:25 Calcium 8.5 mg/dL (8.5-10.1) 11/08/24 05:25 Corrected Calcium TNP 11/08/24 05:25 Magnesium 2.1 mg/dL (2.0-2.9) 11/08/24 05:25 Total Bilirubin 0.40 mg/dL (0.2-1.0) 11/08/24 05:25 AST 37 Units/L (15-37) 11/08/24 05:25 ALT 38 Units/L (12-78) 11/08/24 05:25 Alkaline Phosphatase 123 Units/L (46-116) H 11/08/24 05:25 Creatine Kinase 74 Units/L (26-192) 11/08/24 05:47 Troponin I High Sens 14.2 ng/L (4.0-60.0) 11/08/24 05:47 B-Natriuretic Peptide 282 pg/mL (0-79) H 11/07/24 23:17 Total Protein 7.2 g/dL (6.4-8.2) 11/08/24 05:25 Albumin 3.4 g/dL (3.4-5.0) 11/08/24 05:25 Globulin 3.8 g/dL (2.5-4.5) 11/08/24 05:25 Albumin/Globulin Ratio 0.9 Ratio (1.1-2.1) L 11/08/24 05:25 Hospital Course Hospital Course: Patient is a 79-year-old female presenting with chest pain and headache. She reports symptoms started earlier in the day. She reports headache progressively gotten worse. In the ER she was noted to be severely hypertensive. Labs/imaging: WBC 6.7, hemoglobin 10.3, platelets 147, sodium 143, potassium 3.7, creatinine 1.05, glucose 77, BNP 282, troponin negative x 3, chest x-ray was obtained revealing heart failure versus pneumonia. Patient however is not short of breath or has signs of lower extremity edema. Brain CT negative. Patient was admitted for chest pain rule out and hypertensive urgency. She was given IV medications that did bring blood pressure back down. She states that she does have Bumex at home that she takes as needed. Discussed with patient that she will need to take Bumex at least daily for the next 3 days until she sees her primary care provider. Will also send in some clonidine to use as need ed to bring down blood pressure if she notices as being elevated at home. She will also follow-up with her senior revenue accountant outpatient. Patient was discharged in stable condition. Instructed follow-up PCP within 1 week. Discharge Medications Discharge Medications: Home Medication List brimonidine 0.2 % eye drops drp ophthalmic (eye) 11/07/24 [History] dorzolamide 22.3 mg-timolol 6.8 mg/mL eye drops 1 drp ophthalmic (eye) BID 11/07/24 [History] insulin lispro 100 unit/mL subcutaneous solution (Humalog U-100 Insulin) See Rx Instructions .Route .COMPLEX PRN 11/07/24 [History] lisinopril 10 mg tablet 10 mg PO DAILY 11/07/24 [History] pantoprazole 40 mg tablet,delayed release 40 mg PO BID 11/07/24 [History] Prescriptions: Discharge Plan Discharge Plan Patient Disposition: HOME, SELF-CARE Condition: Stable Health Concerns: Post Hospitalization: new medications and changes needed to prevent readmission or further decline. Pt educated and given instructions on all concerns. Care Plan Goals: Problem: Cardiac Complications Goal: Early Recognition of cardiac complications for prompt intervention Instructions: Follow provided instructions. Follow up with primary physician as directed. Contact primary care physician or report to the closest Emergency Room if condition worsens. Plan of Treatment: Continue with present treatment and follow up plan. Pt is to keep follow up appointment as instructed and take medications as ordered. Assessment: No distress noted. Prescriptions: New lisinopril 20 mg Tablet 20 mg PO QDAY Qty: 30 0RF clonidine HCl 0.1 mg Tablet 0.1 mg PO TID PRNQty: 60 0RF Discontinued lisinopril 10 mg tablet 10 mg PO DAILY No Action atorvastatin [Lipitor] 80 MG tablet 80 mg PO HS citalopram [Celexa] 40 MG tablet 40 mg PO HS latanoprost 0.005 % drops 1 drp LEFTEYE DAILY Patient Comments: brimonidine 0.2 % drops 1 drp LEFTEYE BID Patient Comments: pantoprazole 40 mg tablet,delayed release (DR/EC) 40 mg PO BID brimonidine 0.2 % drops OPHTHALMIC (EYE) Patient Comments: [NO ORIGINAL SIG] dorzolamide-timolol 22.3-6.8 mg/mL drops 1 drp OPHTHALMIC (EYE) BID insulin lispro [Humalog U-100 Insulin] 100 unit/mL solution See Rx Instructions .ROUTE .COMPLEX PRN Patient Comments: [NO ORIGINAL SIG] Rx Instructions: HUMALOG INSULIN VIA INSULIN PUMP. SELF REGULATED PER PT. Orders to Discharge Patient Discharge Orders: Discharge (Routine); Ordered 11/08/24 Ordered By: Cole Johnson Follow ups/Referrals Follow ups/Referrals: Gabriela Javier [Primary Care Provider, Emergency Department] - 11/25/24 3:20 pm Instructions Instructions: Form - Blood Pressure Record Sheet, General Headache Without Cause, [id number], Hypertension Activity Restrictions/Additional Instructions: Continue Bumex for the next 3 days and then as needed. Monitor blood pressure and contact MD with any concerns. Stand Alone Forms: Excuse From Work or School, Find Help Web Site, Post Hospital Follow Up Care Print Language: [email or web address]
== END 2024-11-08 11:05 | disposition home or self-care (01) ==
LOC: MED/SURG 22:56 → ER 22:56 → MED/SURG 11-08 03:35
PROVIDERS: ADMIT Internal Medicine; ATTEND Internal Medicine
DX: Z86.73 Personal history of transient ischemic attack (TIA), and cerebral infarction without residual deficits; Z95.0 Presence of cardiac pacemaker; R06.02 Shortness of breath; Z79.4 Long term (current) use of insulin; E78.5 Hyperlipidemia, unspecified; R51.9 Headache, unspecified; R07.89 Other chest pain; D64.9 Anemia, unspecified; I16.0 Hypertensive urgency; R94.31 Abnormal electrocardiogram [ECG] [EKG]; E11.65 Type 2 diabetes mellitus with hyperglycemia